=== PATIENT | female | born 1960 | race Caucasian/White ===

== ENCOUNTER 2016-09-08 19:08 | Emergency (ER) | payer BC ==
[~2016-09-08] VITALS: Ht 154.9 cm; Wt 88.5 kg
[2016-09-08 19:31] VITALS: Ht 154.9 cm; Wt 88.5 kg
[2016-09-09] MEDS ORDERED: IPRATROPIUM (NEB) 0.5 MG/2.5 ML AMP NEB STA (01:02)
[2016-09-09] MEDS ORDERED: METHYLPREDNISOLONE 125 MG INJ IM STA (01:02)
[2016-09-09] MEDS ORDERED: ALBUTEROL 0.5% (NEB) 2.5 MG/0.5 ML AMP NEB STA (01:02)
--- NOTE | 2016-09-09 02:12 | RADRPT ---
PROCEDURE: XR Chest. CLINICAL INDICATION: Patient experiencing Asthma exacerbation. TECHNIQUE: Single frontal chest x-ray. COMPARISON: None. FINDINGS: There is minimal prominence of the lung interstitium which could be secondary to asthma. No focal l zoila consolidation is seen. Heart size is within normal limits. IMPRESSION: There is minimal prominence of the lung interstitium which could be secondary to asthma. RPTAT: HJES .Jair Asif MD, MD Date Time Electronically viewed and signed by .Jair Asif MD, on 09/09/2016 02:12 .S/
[2016-09-09] MEDS ORDERED: AZIT250T94 PO (02:27)
[2016-09-09] MEDS ORDERED: ALBU8.5H3 INH (02:27)
[2016-09-09] MEDS ORDERED: IBUP-1542 PO (02:29)
--- NOTE | 2016-09-09 02:40 | ERD ---
ER Documentation Chief Complaint Date/Time DATE: 09/09/16 TIME: 02:35 Chief Complaint cough and back pain x 8 days HPI Patient is a 55-year-old female past medical history of GERD and vertigo presents to the emergency department with with a cough and back pain 8 days. Patient states that her cough was initially dry and has now become productive with green phlegm production. She states when she coughs, she has lower back pain. Patient denies any chest pain, shortness of breath, wheezing. Patient has been taking DayQuil with minimal alleviation of symptoms. She reports tactile fevers. Patient denies any rhinorrhea, throat pain, ear pain, abdominal pain, nausea, vomiting, diarrhea. Patient states that she did receive a flu vaccine this year. She denies falls or recent trauma. She denies any saddle anesthesia, urinary incontinence, stool incontinence. No recent travel. No sick contacts. ROS All systems reviewed and are negative except as per history of present illness. Medications Home Meds Active Scripts Ibuprofen* (Motrin*) 600 Mg Tab, 600 MG PO Q6, #30 TAB Prov:ISHAN BROWNING PA-C 09/09/16 Albuterol Sulfate* (Proair HFA*) 8.5 Gm Hfa.aer.ad, 2 PUFF INH Q6, #1 INHALER Prov:ISHAN BROWNING PA-C 09/09/16 Azithromycin* (Zithromax*) 250 Mg Tablet, 250 MG PO .ZPACK DIRECTED, #6 TAB TAKE 500 MG (2 TABS) THE FIRST DAY THEN 250 MG (1 TAB) DAYS 2-5 Prov:ISHAN BROWNING PA-C 09/09/16 Reported Medications [None] No Conflict Check 02/15/10 Allergies Allergies: Coded Allergies: No Known Drug Allergies (Verified Allergy, Mild, 02/15/10) PMhx/Soc History of Surgery: Yes (TUBAL LIGATION) Anesthesia Reaction: No Hx Neurological Disorder: Yes (MIGRAINE HEADACHES) Hx Respiratory Disorders: No Hx Cardiac Disorders: No Hx Psychiatric Problems: No Hx Miscellaneous Medical Probl: No Hx Alcohol Use: No Hx Substance Use: No Hx Tobacco Use: No Smoking Status: Never smoker FmHx Family History: No diabetes Physical Exam Vitals Vital Signs Date Time Temp Pulse Resp B/P Pulse Ox O2 Delivery O2 Flow Rate FiO2 09/09/16 02:43 98.9 95 22 96 Room Air 09/09/16 01:40 Simple Mask 7 09/09/16 01:25 91 24 100 21 09/08/16 19:31 98.3 87 17 138/80 98 Physical Exam GENERAL: Well-developed, well-nourished female. Appears in no acute distress. HEAD: Normocephalic, atraumatic. No deformities or ecchymosis. EYE: Pupils equal, round, and reactive to light. EOMs intact. No conjunctival erythema. No scleral icterus. No eye discharge. ENT: External ear without any masses or tenderness. Auditory canals clear bilaterally. TM visualized bilaterally, non-erythematous, non-bulging. Nasal mucosa pink with no discharge. Oropharynx is pink without any tonsillar erythema or exudates. No uvula deviation. No kissing tonsils. NECK: Supple. No lymphadenopathy or thyromegaly. No meningismus. No JVD. No bruits. Trachea midline. LUNGS: Bilateral lower lobe wheezing. HEART: Regular rate and rhythm. No murmurs, rubs or gallops. ABDOMEN: Soft, nontender, and nondistended. Positive bowel sounds in all four quadrants. No rebound tenderness, no guarding. (-) McBurney's point tenderness. No CVA tenderness. BACK: No midline tenderness. +Tender to palpation of bilateral trapezius muscles. EXTREMITIES: Equal pulses bilaterally. No peripheral clubbing, cyanosis or edema. No unilateral leg swelling. NEUROLOGIC: Alert and oriented to person, place and time. Moving all four extremities. 5/5 strength in all extremities. Normal speech. Steady gait. (-) Brudzinski sign- no flexion of the hips and knees noted with neck flexion. (-) Kernigs sign- patient able to extend knee to 180 degrees with hip flexion, no hamstring stiffness noted. SKIN: Normal color. Warm and dry. No rashes or lesions. Results 24 hrs Current Medications Medications (Trade) Dose Ordered Sig/Glenda Route PRN Reason Start Time Stop Time Status Last Admin Dose Admin Albuterol (Proventil 0.5% (Neb)) 5 mg ONCE STAT NEB 09/09/16 01:02 09/09/16 01:04 DC 09/09/16 01:25 Ipratropium [place] (Atrovent 0.02% (Neb)) 0.5 mg ONCE STAT NEB 09/09/16 01:02 09/09/16 01:04 DC 09/09/16 01:24 Methylprednisolone Sodium Succinate (Solu-Medrol) 125 mg ONCE STAT IM 09/09/16 01:02 09/09/16 01:04 DC 09/09/16 01:12 Procedures/MDM ED COURSE: The patient was stable throughout ED course. I kept the patient and/or family informed of laboratory and diagnostic imaging results throughout the ED course. DIAGNOSTIC IMAGING: Read by radiologist. DIAGNOSTIC IMAGING REPORT Patient: CEDRIC MONTES : 1960 Age: 55 Sex: F MR #: [id number] DOS: 09/09/16 0102 Ordering MD: ISHAN BROWNING PA-C Location: [facility] Room/Bed: PROCEDURE: XR Chest. CLINICAL INDICATION: Patient experiencing Asthma exacerbation. TECHNIQUE: Single frontal chest x-ray. COMPARISON: None. FINDINGS: There is minimal prominence of the lung interstitium which could be secondary to asthma. No focal lung consolidation is seen. Heart size is within normal limits. IMPRESSION: There is minimal prominence of the lung interstitium which could be secondary to asthma. RPTAT: HJES .Jari Asif MD, MD Date Time Electronically viewed and signed by .Jair Asif MD, on 09/09/2016 02:12 .S/ CC: ISHAN BROWNING PA-C MEDICATIONS GIVEN: Albuterol breathing treatment, ipratropium, Solu-Medrol IM Patient tolerated medication well with no adverse reactions. Upon reexamination , breath sounds were noted to be improved. Patient reported feeling better post -breathing treatment. MEDICAL DECISION MAKING: This is a 55 year old female who presents with a cough and back pain. Vital signs were reviewed. Patient was afebrile. Patient was not hypoxic. ENT exam was normal. CXR showed there is minimal prominence of the lung interstitium which could be secondary to asthma. Given these findings, the patients presentation is most consistent with asthma exacerbation secondary to viral URI vs acute bronchitis. I have a much lower clinical concern for bacterial infections including pneumonia, meningitis, sinusitis, otitis externa, acute otitis media, strep pharyngitis, epiglottitis or peritonsillar abscess. Patient' s back pain may be due to muscle spasms vs sciatica as diagnosed at previous visit. I have a much lower clinical concern for cauda equine syndrome, spinal fractures, epidural abscess, spinal metastases, osteomyelitis, ruptured or leaking AA, pyelonephritis or nephrolithiasis. PRESCRIPTIONS: Z-[place]mar, ibuprofen, albuterol inhaler DISCHARGE: At this time, patient is stable for discharge and outpatient management. Supportive therapies such as OTC throat lozenges, salt water gurgles, popsicles and jello discussed. I have instructed the patient to follow-up with his/her primary care physician in 1-2 days. I have instructed the patient to promptly return to the ER for any new or worsening symptoms including increased pain, swelling, fever, nausea, vomiting, weakness or difficulty breathing. The patient and/or family expressed understanding of and agreement with this plan. All questions were answered. Home care instructions were provided. MEDICAL DECISION MAKING: Departure Diagnosis: Primary Impression: Acute bronchitis Bronchitis organism: unspecified organism Qualified Code: J20.9 - Acute bronchitis, unspecified organism Condition: Stable Patient Instructions: Acute Bronchitis Additional Instructions: Llame al doctor TONY y saúl pierre TESSA PARA DENTRO DE 1-2 DUTTON.Dgale a la secretaria que nosotros le instruimos hacer esta tessa.Avise o llame si booker condicin se empeora antes de la tessa. Regresa aqui si peor o no mejor. ISHAN BROWNING PA-C Sep 09, 2016 02:40
[2016-09-09 02:43] VITALS: PULSE 95; RESP 22; TEMP 98.9
== END 2016-09-09 02:40 | disposition home or self-care (01) ==
LOC: FTE 19:08
DX: J20.9 Acute bronchitis, unspecified (principal)
CPT/HCPCS: 71010; 94664; 96372; J2930; Z7502; Z7610

== ENCOUNTER 2019-04-25 18:14 | Emergency (ER) | payer BC ==
[~2019-04-25] VITALS: Ht 152.4 cm; Wt 87.6 kg
[~2019-04-25 18:14] MED LIST: ACET325T33 PO; ALBU8.5H8 INH; ALPR0.5T6 PO; AZIT250T PO; CYCL10TA7 PO; IBUP-1542 PO; MECL-77 PO; MELO7.5O PO
[2019-04-25 18:18] VITALS: Ht 152.4 cm; Wt 87.6 kg
[2019-04-25] MEDS ORDERED: ACETAMINOPHEN 325 MG TAB PO ONE (19:30)
[2019-04-25 20:10] VITALS: BP 124/59; PULSE 75; RESP 18
== END 2019-04-25 20:10 | disposition home or self-care (01) ==
LOC: FTE 18:14
DX: M54.5 Low back pain (principal)
CPT/HCPCS: 81003; Z7502; Z7610; 99282